=== PATIENT | female | born 1940 | race Caucasian/White ===

== ENCOUNTER → 2019-09-09 | Outpatient (CLI) | payer MEDICARE, OTHER ==
[~2019-09-09] MED LIST: ACET500T68 PO; ASPI-612 PO; FLUT50DI IH; METO25TA2 PO; TRAM50TA PO; UMEC1DIS IH
[2019-09-09 09:37] VITALS: BP 122/74
== END | disposition home or self-care (01) ==
LOC: SURG 09:14
PROVIDERS: ATTEND Anesthesiology
DX: M48.061 Spinal stenosis, lumbar region without neurogenic claudication (principal); M54.16 Radiculopathy, lumbar region; J44.9 Chronic obstructive pulmonary disease, unspecified; M19.90 Unspecified osteoarthritis, unspecified site
CPT/HCPCS: 99204; G0463

== ENCOUNTER → 2019-09-18 | Outpatient (CLI) | payer MEDICARE, OTHER ==
[~2019-09-18] MED LIST changes: +0.9 % SODIUM CHLORIDE 10 ML VIAL. ONE; -ASPI-612 PO; +ASPI-889 PO; +BUPIVACAINE MPF 0.25% 10 ML VIAL. ONE; +DEXAMETHASONE SOD PHOS 10 MG/ML VIAL. ONE; +IOHEXOL 300 MG/ML 50 ML VIAL. ONE; +LIDOCAINE 1% PF 30 ML VIAL. ONE
[2019-09-18 11:41] VITALS: BP 132/64
== END | disposition home or self-care (01) ==
LOC: SURG 10:49
PROVIDERS: ATTEND Anesthesiology
DX: M54.16 Radiculopathy, lumbar region (principal); Z88.8 Allergy status to other drugs, medicaments and biological substances; Z79.82 Long term (current) use of aspirin; Z79.899 Other long term (current) drug therapy
CPT/HCPCS: 64483; 64484; J1100; J2001; J3490; Q9967

== ENCOUNTER → 2019-10-28 | Outpatient (CLI) | payer MEDICARE, OTHER ==
[~2019-10-28] MED LIST changes: -0.9 % SODIUM CHLORIDE 10 ML VIAL. ONE; -DEXAMETHASONE SOD PHOS 10 MG/ML VIAL. ONE; +methylPREDNISolone ACETATE 40 MG/ML VIAL. ONE
[2019-10-28 10:13] VITALS: BP 138/59
== END | disposition home or self-care (01) ==
LOC: SURG 09:22
PROVIDERS: ATTEND Anesthesiology
DX: M46.1 Sacroiliitis, not elsewhere classified (principal); J44.9 Chronic obstructive pulmonary disease, unspecified; Z79.82 Long term (current) use of aspirin; Z88.8 Allergy status to other drugs, medicaments and biological substances; Z79.899 Other long term (current) drug therapy
CPT/HCPCS: 27096; J1030; J2001; J3490; Q9967; 77002

== ENCOUNTER 2020-10-12 20:34 | Emergency (ER) | payer MEDICARE, OTHER ==
[~2020-10-12] VITALS: Ht 165.1 cm; Wt 59.1 kg
[~2020-10-12 20:34] MED LIST changes: -BUPIVACAINE MPF 0.25% 10 ML VIAL. ONE; -IOHEXOL 300 MG/ML 50 ML VIAL. ONE; -LIDOCAINE 1% PF 30 ML VIAL. ONE; -methylPREDNISolone ACETATE 40 MG/ML VIAL. ONE
[2020-10-12 21:41] VITALS: BP 168/74
[2020-10-12] MEDS ORDERED: ACET15SO6 AD (21:46)
--- NOTE | 2020-10-12 21:46 | PHYS DOC ---
Adult General Chief Complaint Chief Complaint: EARACHE/EAR PAIN HPI HPI Patient is a 72-year-old female patient who presents with discomfort and foreign body in her right ear. Patient states the rubber end Of her hearing aid can become stuck in her ear tonight as she tried to move it. States she had tried to remove with the tweezers at home, and was unable to come think she should push it in further. States she does have a little bit of discomfort in her ear after that, states she cannot hear very well out of her ear. Denies additional complaints (VENTURA RAMIREZ APRN) Review of Systems Review of Systems Constitutional: Denies fever or chills [] HENT: Denies nasal congestion or sore throat [] reports known foreign body in her right ear Respiratory: Denies cough or shortness of breath [] All other systems were reviewed and found to be within normal limits, except as documented in this note. (VENTURA RAMIREZ APRN) Allergies Allergies Allergies Coded Allergies Type Severity Reaction Last Updated Verified sulfur dioxide Allergy Unknown 09/18/19 Yes (VENTURA RAMIREZ APRN) Physical Exam Physical Exam Constitutional: Well developed, well nourished, no acute distress, non-toxic appearance. [] HENT: Normocephalic, atraumatic, bilateral external ears normal, oropharynx moist, no oral exudates, nose normal. [] Foreign body noted distally in right ear canal. Abrasions noted to ear canal without active bleeding, consistent with patient attempts to remove foreign body (VENTURA RAMIREZ APRN) EKG EKG [] (VENTURA RAMIREZ APRN) Radiology/Procedures Radiology/Procedures [] (VENTURA RAMIREZ APRN) Heart Score C/O Chest Pain: No Risk Factors: Risk Factors: DM, Current or recent (<one month) smoker, HTN, HLP, family history of CAD, obesity. Risk Scores: Risk Factors: DM, Current or recent (<one month) smoker, HTN, HLP, family history of CAD, obesity. (VENTURA RAMIREZ APRN) Course & Med Decision Making Course & Med Decision Making Pertinent Labs and Imaging studies reviewed. (See chart for details) [] Using alligator forceps, and direct visual otoscope, grasped foreign body, removed. Approximately 4 mm diameter rubber stopper about 6 mm length. Patient reports that the entire object from her hearing aid. No additional foreign bodies noted. Tympanic membrane appears vyas, without erythema. Given trauma from patient's attempted to remove foreign body, will recommend eardrops for infection prevention. Patient agreeable with this plan. Patient reporting no discomfort following removal of object (VENTURA RAMIREZ APRN) Dragon Disclaimer Dragon Disclaimer This electronic medical record was generated, in whole or in part, using a voice recognition dictation system. (VENTURA RAMIREZ APRN) Attending Co-Sign The patient was seen and interviewed as well as examined at the bedside. The chart was reviewed. The case was discussed. Agree with the plan of care. (GABRIELA KIMBLE DO) Departure Departure: Impression: Primary Impression: Foreign body in right ear, initial encounter Disposition: HOME / SELF CARE / HOMELESS Condition: STABLE Referrals: JESSE HERRERA (PCP) Patient Instructions: Ear Foreign Body, [id number] Additional Instructions: As we discussed, do not put anything in that right ear other than eardrops for the next 5 days. Try to avoid putting your hearing aid in that ear for the next 5 days as well. Make sure when you were using a hearing aid, you make sure the end pieces are firmly attached so you are at low risk of losing it in your ear again. Follow-up with your primary care provider as needed Scripts Acetic Acid (ACETIC ACID) 15 Ml Solution 4 DROP AD BID for infectious process for 7 Days, #15 ML 0 Refills 4 drops to your right ear, twice a day for 7 days. Prov: VENTURA RAMIREZ APRN 10/12/20 VENTURA RAMIREZ APRN Oct 12, 2020 21:46 GABRIELA KIMBLE DO Oct 14, 2020 06:41
== END 2020-10-12 21:50 | disposition home or self-care (01) ==
LOC: ER 20:34
DX: T16.1XXA Foreign body in right ear, initial encounter (principal); Z88.2 Allergy status to sulfonamides; X58.XXXA Exposure to other specified factors, initial encounter; Y93.89 Activity, other specified; Y92.89 Other specified places as the place of occurrence of the external cause; Y99.8 Other external cause status
CPT/HCPCS: 69200; 99284

== ENCOUNTER → 2021-02-15 | Outpatient (CLI) | payer MEDICARE, OTHER ==
[~2021-02-15] MED LIST changes: +ACET15SO6 AD
--- NOTE | 2021-02-15 15:06 | RAD ---
PROCEDURE: MG DIAGNOSTIC BILAT, US BREAST LTD LT HISTORY: The patient is 80 years old and is seen for Reason: LFTBR PAIN / Spl. Instructions: / Histo ry: . COMPARISON: April 09, 2019. December 28, 2016. TECHNIQUE: CC and MLO views of both breasts were obtained. Images were processed by the [employer] computer-aided detection system. Targeted ultrasound of the left breast. DENSITY: There are scattered fibroglandular densities. FINDINGS: Right mammogram: Benign-appearing calcifications. No suspicious mass, architectural distortion or igor rocalcification. Unchanged small well-circumscribed mass within the right medial breast compared to 2 017. Left mammogram: Benign-appearing calcifications. No suspicious mass, architectural distortion or micr ocalcification to correspond with patient's palpable concern. Left ultrasound: No mass fluid collection or lymphadenopathy within the region of the patient's palpa ble concern. Mildly prominent left axillary lymph node measures 2.4 x 0.7 cm, similar compared to rodrigo or PET/CT. IMPRESSION: 1. No mammographic or ultrasound evidence of abnormality within the region the patient's palpable co ncern. Recommend continued clinical follow-up. Recommend annual screening mammograms. 2. Mildly prominent left axillary lymph node, similar compared to prior PET/CT. Recommend annual screening mammograms per [employer] guidelines. She will be due in one year. BI-RADS category 2 Benign Patient entered into a reminder system for annual screening mammogram. Electronically signed by: Olaf Edwards DO (02/15/2021 3:03 PM) [id number]
== END ==
LOC: MAMMO 14:08
PROVIDERS: ATTEND Family Medicine
DX: R92.8 Other abnormal and inconclusive findings on diagnostic imaging of breast (principal); N64.4 Mastodynia
CPT/HCPCS: 76642; 77066